=== PATIENT | female | born 1945 | race Caucasian/White ===

== ENCOUNTER → 2023-12-31 12:17 | Outpatient (BNVA) | payer MEDICARE, SELFPAY | PROVIDERS: Visit Provider Family Medicine | DX: M16.12 Unilateral primary osteoarthritis, left hip (principal); M85.68 Other cyst of bone, other site | CPT/HCPCS: 73502 ==

== ENCOUNTER → 2024-04-21 11:26 | Outpatient (BNVA) | payer MEDICARE, SELFPAY | PROVIDERS: PCP Family Medicine; Visit Provider Family Medicine | DX: E03.9 Hypothyroidism, unspecified (principal); M16.12 Unilateral primary osteoarthritis, left hip; F32.0 Major depressive disorder, single episode, mild | CPT/HCPCS: 80053; 84443; 85025 ==